=== PATIENT | male | born 1995 | race Caucasian/White ===

== ENCOUNTER 2023-03-11 20:25 | Emergency (ER) | payer BC ==
--- NOTE | 2023-03-11 20:33 | ERPHSYRPT ---
- History of Present Illness Time Seen by Provider: 03/11/23 20:33 Source: patient, family Exam Limitations: no limitations Physician History: This is a 28-year-old white male patient who presents with increasing shortness of breath and left-sided chest pain over the last week. Patient took a home COVID test 3 days ago and it was negative per his report. In the last 2 days his symptoms have significantly worsened. Patient has no known exposure to individuals with similar symptoms or with diagnosis of COVID or other viral illnesses. Patient takes no medications chronically. He has no known drug allergies. Patient is a daily smoker of cigarettes and is smoked a pack of cigarettes a day for 6 years. Patient's left-sided chest pain is an 8 out of 10. He presents with some diaphoresis. His room air oxygen saturation levels at the time of my examination were 96 to 97%. Timing/Duration: week(s) (1) Activities at Onset: none Severity of Dyspnea-Max: mild (To moderate) Severity of Dyspnea-Current: moderate Possible Cause: no prior episodes Associated Symptoms: chest pain/discomfort (Left side), heart racing, sweating, No cough, No wheezing Allergies/Adverse Reactions: No Known Drug Allergies Allergy (Verified 03/11/23 20:28) Hx Tetanus, Diphtheria Vaccination/Date Given: No Hx Influenza Vaccination/Date Given: No Hx Pneumococcal Vaccination/Date Given: No Travel Risk - International Travel Have you traveled outside of the country in past 3 weeks: No - Coronavirus Screening Are you exhibiting any of the following symptoms?: No Close contact with a COVID-19 positive Pt in past 14-21 Days: No - Review of Systems Constitutional: No Symptoms Eyes: No Symptoms Ears, Nose, & Throat: No Symptoms Respiratory: Dyspnea Cardiac: Chest Pain (Left side) Abdominal/Gastrointestinal: No No Symptoms Genitourinary Symptoms: No Symptoms Musculoskeletal: No Symptoms Skin: No Symptoms Neurological: No Symptoms Psychological: No Symptoms Endocrine: No Symptoms Hematologic/Lymphatic: No Symptoms Immunological/Allergic: No Symptoms All Other Systems: Reviewed and Negative - Past Medical History Pertinent Past Medical History: No Neurological History: No Pertinent History ENT History: No Pertinent History Cardiac History: No Pertinent History Respiratory History: No Pertinent History Endocrine Medical History: No Pertinent History Musculoskeletal History: Other - Past Surgical History Past Surgical History: Yes Musculoskeletal: Orthopedic Surgery Other Surgical History: skin cancer removed. tonsils - Social History Smoking Status: Current every day smoker How long have you smoked: 6 YRS. Exposure to second hand smoke: Yes Drug Use: none Patient Lives Alone: No - Nursing Vital Signs Nursing Vital Signs: Initial Vital Signs Temperature 98.5 F 03/11/23 20:26 Pulse Rate 116 H 03/11/23 20:26 Respiratory Rate 30 H 03/11/23 20:26 Blood Pressure 150/102 03/11/23 20:26 O2 Sat by Pulse Oximetry 99 03/11/23 20:26 Pain Scale Pain Intensity 8 - Physical Exam General Appearance: mild distress, alert, anxiety Eye Exam: PERRL/EOMI Ears, Nose, Throat Exam: hearing grossly normal, normal ENT inspection, normal pharynx Neck Exam: normal inspection, non-tender, supple, full range of motion Respiratory Exam: normal breath sounds, chest tenderness (Left side. Worsens with inspiration), lungs clear, airway intact, No respiratory distress Cardiovascular/Chest Exam: tachycardia Abdominal/Gastrointestinal Exam: soft, normal bowel sounds, No tenderness Rectal Exam: not done Extremity Exam: non-tender, normal range of motion, normal inspection Neurologic Exam: alert, oriented x 3, cooperative, equipment operat0r II-XII nml as tested, normal mood/affect, nml cerebellar function, nml station & gait, sensation nml Skin Exam: normal color, warm, dry Lymphatic Exam: No adenopathy SpO2 Interpretation: normal O2 Delivery: Room Air - Course Nursing assessment & vital signs reviewed: Yes EKG Interpreted by Me: RATE ([id number]), Sinus Rhythm, NORMAL AXIS, NORMAL INTERVALS, NORMAL QRS, NORMAL ST-T, Other (No acute ischemic changes on today's twelve-lead EKG.) Ordered Tests: Active Orders 24 hr Category Date Time Status EKG-ER Only STAT Care 03/11/23 20:48 Active IV Insertion STAT Care 03/11/23 20:48 Active CHEST 1 VIEW (PORTABLE) Stat Exams 03/11/23 21:59 Taken CBC W DIFF Stat Lab 03/11/23 20:56 Completed CMP Stat Lab 03/11/23 20:56 Completed D-DIMER QUANTITATIVE Stat Lab 03/11/23 20:56 Completed NT PRO BNPII Stat Lab 03/11/23 20:56 Completed PROTIME WITH INR Stat Lab 03/11/23 20:56 Completed TROPONIN Q4H Lab 03/11/23 20:56 Completed TROPONIN Q4H Lab 03/12/23 01:00 Ordered TROPONIN Q4H Lab 03/12/23 05:00 Ordered Medication Summary Generic Name Dose Route Start Last Admin Trade Name Alisa PRN Reason Stop Dose Admin Sodium Chloride 1,000 mls @ 100 mls/hr 03/11/23 21:00 03/11/23 21:07 Sodium Chloride 0.9% 1000 Ml IV 04/10/23 20:59 100 mls/hr .Q10H YI Administration Discontinued Medications Generic Name Dose Route Start Last Admin Trade Name Alisa PRN Reason Stop Dose Admin Morphine Sulfate 4 mg 03/11/23 20:49 03/11/23 21:06 Morphine Sulfate 4 Mg/Ml Injection IV 03/11/23 20:50 4 mg STAT ONE Administration Morphine Sulfate Confirm 03/11/23 21:04 Morphine Sulfate 4 Mg/Ml Injection Administered 03/11/23 21:05 Dose 4 mg .ROUTE .STK-MED ONE Ondansetron HCl 4 mg 03/11/23 20:49 03/11/23 21:06 Ondansetron Hcl 4 Mg/2 Ml Vial IV 03/11/23 20:50 4 mg STAT ONE Administration Ondansetron HCl Confirm 03/11/23 21:03 Ondansetron Hcl 4 Mg/2 Ml Vial Administered 03/11/23 21:04 Dose 4 mg .ROUTE .STK-MED ONE Lab/Rad Data: Laboratory Result Diagrams 03/11/23 20:56 03/11/23 20:56 Laboratory Results 03/11/23 03/11/23 03/11/23 Range/Units 21:07 20:56 20:56 WBC (4.0-10.5) x10^3/uL RBC (4.1-5.6) x10^6/uL Hgb (12.5-18.0) g/dL Hct (42-50) % MCV (78-100) fL MCH (26-32) pg MCHC (32-36) g/dL RDW (11.5-14.0) % Plt Count (150-450) x10^3/uL MPV (7.5-11.0) fL Gran % (36.0-66.0) % Immature Gran % (Auto) (0.00-0.4) % Nucleat RBC Rel Count (0.00-0.1) % Eos # (Auto) (0-0.5) x10^3/uL Immature Gran # (Auto) (0.00-0.03) x10^3u/L Absolute Lymphs (auto) (1.0-4.6) x10^3/uL Absolute Monos (auto) (0.0-1.3) x10^3/uL Absolute Nucleated RBC (0.00-0.01) x10^3u/L Lymphocytes % (24.0-44.0) % Monocytes % (0.0-12.0) % Eosinophils % (0.00-5.0) % Basophils % (0.0-0.4) % Absolute Granulocytes (1.4-6.9) x10^3/uL Basophils # (0-0.4) x10^3/uL PT 10.2 (9.4-12.5) SECONDS INR 0.93 (0.8-3.0) D-Dimer < 0.19 (0.0-0.50) mg/L Sodium (137-145) mmol/L Potassium (3.5-5.1) mmol/L Chloride (98-107) mmol/L Carbon Dioxide (22-30) mmol/L Anion Gap (5-15) MEQ/L BUN (9-20) mg/dL Creatinine (0.66-1.25) mg/dL Estimated GFR ML/MIN Glucose (74-106) mg/dL Calcium (8.4-10.2) mg/dL Total Bilirubin (0.2-1.3) mg/dL AST (17-59) U/L ALT (0-50) U/L Alkaline Phosphatase (38-126) U/L Troponin I < 0.012 (0.000-0.034) ng/mL NT-Pro-B Natriuret Pep < 20.0 (<300) pg/mL Serum Total Protein (6.3-8.2) g/dL Albumin (3.5-5.0) g/dL Influenza Type A Ag NEGATIVE (NEGATIVE) Influenza Type B Ag NEGATIVE (NEGATIVE) RSV (PCR) NEGATIVE (NEGATIVE) SARS-CoV-2 (PCR) NEGATIVE (NEGATIVE) 03/11/23 03/11/23 Range/Units 20:56 20:56 WBC 11.5 H (4.0-10.5) x10^3/uL RBC 5.83 H (4.1-5.6) x10^6/uL Hgb 17.5 (12.5-18.0) g/dL Hct 51.3 H (42-50) % MCV 88.0 (78-100) fL MCH 30.0 (26-32) pg MCHC 34.1 (32-36) g/dL RDW 12.0 (11.5-14.0) % Plt Count 257 (150-450) x10^3/uL MPV 11.5 H (7.5-11.0) fL Gran % 55.7 (36.0-66.0) % Immature Gran % (Auto) 0.7 H (0.00-0.4) % Nucleat RBC Rel Count 0.0 (0.00-0.1) % Eos # (Auto) 0.36 (0-0.5) x10^3/uL Immature Gran # (Auto) 0.08 H (0.00-0.03) x10^3u/L Absolute Lymphs (auto) 3.49 (1.0-4.6) x10^3/uL Absolute Monos (auto) 1.07 (0.0-1.3) x10^3/uL Absolute Nucleated RBC 0.00 (0.00-0.01) x10^3u/L Lymphocytes % 30.2 (24.0-44.0) % Monocytes % 9.3 (0.0-12.0) % Eosinophils % 3.1 (0.00-5.0) % Basophils % 1.0 (0.0-0.4) % Absolute Granulocytes 6.43 (1.4-6.9) x10^3/uL Basophils # 0.11 (0-0.4) x10^3/uL PT (9.4-12.5) SECONDS INR (0.8-3.0) D-Dimer (0.0-0.50) mg/L Sodium 139 (137-145) mmol/L Potassium 4.3 (3.5-5.1) mmol/L Chloride 97 L (98-107) mmol/L Carbon Dioxide 30 (22-30) mmol/L Anion Gap 17.1 H (5-15) MEQ/L BUN 11 (9-20) mg/dL Creatinine 1.09 (0.66-1.25) mg/dL Estimated GFR 93.6 ML/MIN Glucose 84 (74-106) mg/dL Calcium 10.2 (8.4-10.2) mg/dL Total Bilirubin 1.60 H (0.2-1.3) mg/dL AST 20 (17-59) U/L ALT 23 (0-50) U/L Alkaline Phosphatase 65 (38-126) U/L Troponin I (0.000-0.034) ng/mL NT-Pro-B Natriuret Pep (<300) pg/mL Serum Total Protein 8.8 H (6.3-8.2) g/dL Albumin 5.3 H (3.5-5.0) g/dL Influenza Type A Ag (NEGATIVE) Influenza Type B Ag (NEGATIVE) RSV (PCR) (NEGATIVE) SARS-CoV-2 (PCR) (NEGATIVE) - Progress Progress: improved, re-examined Air Movement: fair Progress Note: 03/11/23 20:59 This patient's medical issue is 1 of moderate complexity. The level of complexity in the workup performed based on review the patient's past medical history, review the patient's medication list, review the patient's drug allergy list, history of present illness and physical findings on examination. The workup in this patient includes placement of intravenous line, infusion of normal saline solution bolus, infusion of 4 mg intravenous Zofran, infusion of 4 mg intravenous morphine, CBC, CMP, viral studies, troponin level, twelve-lead EKG, D-dimer level. We will wait on the D-dimer level. If this is elevated we will perform a CT scan of the chest with contrast. If it is negative, we will perform a CT scan of the chest without contrast. 03/11/23 22:14 I interpreted the patient's laboratory data results. Patient has a leukocytosis with a left shift. However, his D-dimer and troponin level are within normal limits. His initial twelve-lead EKG does show sinus tachycardia with a heart rate of 119 bpm. Chest x-ray was interpreted by me. I do not appreciate any acute card iopulmonary process. I do not appreciate an infiltrate on this x-ray. This patient may have pleurisy. His room air oxygen saturation levels have been fine but he does have pain with inspiration. We will provide the patient with a dose of intravenous Solu-Medrol, intravenous Rocephin. Will then send prescriptions remotely to his pharmacy for azithromycin, prednisone and hydrocodone elixir. He may have an early upper respiratory infection that we are not seeing on chest x-ray at this time. I do not have a strong suspicion that the patient has a pulmonary embolus. Blood Culture(s) Obtained: Yes Antibiotics given: Yes Counseled pt/family regarding: lab results, diagnosis, rad results Medical Desision Making - Diagnostic Testing Diagnostic test were ordered, analyzed, and reviewed by me: Yes Radiological Interpretation: Interpreted by me, Teleradiologist Report - Risk of complications The pt has a mod risk of morbidity or mortality based on: Need for prescription drug management - Departure Departure Disposition: Home Clinical Impression: Leukocytosis, Painful respiration, Upper respiratory infection Condition: Stable Critical Care Time: No Additional Instructions: Drink plenty of fluids. Avoid any exposure to smoke. Take your antibiotics and steroids as prescribed. Call your primary care physician tomorrow, 03/12/2023 to make arranges for further evaluation and management. Prescriptions: Prednisone 10 mg [Deltasone 10 mg] 10 mg PO TID #12 tablet Hydrocodone/Acetaminophen [Hydrocodone-Acetamn 7.5-325/15] 10 ml PO Q8H PRN #120 ml MDD 30 ml PRN Reason: Cough Azithromycin 250 mg [Zithromax 250 MG TABLET] 250 mg PO ZPACK #6 tablet
[2023-03-11 20:43] VITALS: TEMP 98.5
[2023-03-11] MEDS ORDERED: MORPHINE SULFATE 4 MG INJ IV ONE (20:49)
[2023-03-11] MEDS ORDERED: Zofran 4 MG/2 ML VIAL IV ONE (20:49)
[2023-03-11 20:58] LABS: Absolute Neutrophil Ct (ANC) 6.43 x10^3/uL (1.4-6.9); Basophil (Absolute #) 0.11 x10^3/uL (0-0.4); Eosinophil % 3.1 % (0.00-5.0); Eosinophil (Absolute #) 0.36 x10^3/uL (0-0.5); Hematocrit 51.3 % (42-50); Hemoglobin 17.5 g/dL (12.5-18.0); IMMATURE GRAN # 0.08 x10^3u/L (0.00-0.03); IMMATURE GRAN % 0.7 % (0.00-0.4); Lymphocyte (Absolute #) 3.49 x10^3/uL (1.0-4.6); Lymphocytes % 30.2 % (24.0-44.0); Mean Corpuscular Hgb Concent. 34.1 g/dL (32-36); Mean Platelet Volume 11.5 fL (7.5-11.0); Monocyte (Absolute #) 1.07 x10^3/uL (0.0-1.3); Monocytes % 9.3 % (0.0-12.0); Neutrophil % 55.7 % (36.0-66.0); Platelet Count 257 x10^3/uL (150-450); Red Blood Count 5.83 x10^6/uL (4.1-5.6); White Blood Count 11.5 x10^3/uL (4.0-10.5)
[2023-03-11] MEDS ORDERED: Sodium Chloride 0.9% 1000 ML 1,000 ML IV SCH (21:00)
[2023-03-11] MEDS ORDERED: Zofran 4 MG/2 ML VIAL ONE (21:03)
[2023-03-11] MEDS ORDERED: MORPHINE SULFATE 4 MG INJ ONE (21:04)
[2023-03-11] MEDS ORDERED: Sodium Chloride 0.9% 1000 ML 1,000 ML ONE (21:04)
[2023-03-11 21:06] LABS: ALBUMIN 5.3 g/dL (3.5-5.0); ANION GAP 17.1 MEQ/L (5-15); BILIRUBIN,TOTAL 1.6 mg/dL (0.2-1.3); Calcium 10.2 mg/dL (8.4-10.2); Creatinine 1 1.09 mg/dL (0.66-1.25); D-DIMER QUANTITATIVE < 0.19 mg/L (0.0-0.50); EST GLOMERULAR FILTRATION RATE 93.6 ML/MIN; INR 0.93 (0.8-3.0); PROTIME 10.2 SECONDS (9.4-12.5); Potassium 4.3 mmol/L (3.5-5.1); Total Protein 8.8 g/dL (6.3-8.2)
[2023-03-11 21:19] LABS: NT PRO BNPII < 20.0 pg/mL (<300); TROPONIN < 0.012 ng/mL (0.000-0.034)
[2023-03-11 21:46] LABS: INFLUENZA A NEGATIVE (NEGATIVE); INFLUENZA B NEGATIVE (NEGATIVE); RESPIRATORY SYNCTIAL VIRUS NEGATIVE (NEGATIVE); SARS-CoV-2 Xpert Express NEGATIVE (NEGATIVE)
[2023-03-11] MEDS ORDERED: ROCEPHIN 1 Gm-D5w 50 ml Bag** 1 G/50 ML IVPB IV STA (22:21)
[2023-03-11] MEDS ORDERED: solu-MEDROL 125 MG, Sterile H2O 10 ml 2 ML IV ONE ×2 (22:21)
[2023-03-11] MEDS ORDERED: HYDROCODONE-ACETAMIN 2.5-108/5 ML SOLUTION PO STA (22:22)
[2023-03-11] MEDS ORDERED: Sterile H2O 10 ml IJ ONE (22:23)
[2023-03-11] MEDS ORDERED: ROCEPHIN 1 Gm-D5w 50 ml Bag** 1 G/50 ML IVPB IV ONE (22:23)
[2023-03-11] MEDS ORDERED: solu-MEDROL ONE (22:23)
[2023-03-11] MEDS ORDERED: HYDROCODONE-ACETAMIN 2.5-108/5 ML SOLUTION ONE (22:30)
[2023-03-11 22:42] VITALS: RESP 22
[2023-03-11 23:05] VITALS: BP 133/87; PULSE 93; O2SAT 98
--- NOTE | 2023-03-12 08:18 | XRAY ---
Indication: Left chest pain. Comparison: February 25, 2012 Portable chest remains inflated and clear. Heart and mediastinal structures within normal limits. Bony thorax intact. Impression: Continued nonacute chest.
== END 2023-03-11 23:46 | disposition home or self-care (01) ==
LOC: ED 20:25
DX: J06.9 Acute upper respiratory infection, unspecified (principal); D72.829 Elevated white blood cell count, unspecified; R06.00 Dyspnea, unspecified; R07.9 Chest pain, unspecified; Z79.52 Long term (current) use of systemic steroids; Z79.891 Long term (current) use of opiate analgesic; Z72.0 Tobacco use
CPT/HCPCS: 0241U; 36000; 36415; 71045; 80053; 83880; 84484; 85025; 85379; 85610; 93005; 96365; 96374; 96375; 99284; J0696; J2270; J2405; J2930; A9270-GY

== ENCOUNTER 2023-03-11 23:58 | Emergency (ER) | payer BC ==
--- NOTE | 2023-03-12 00:11 | ERPHSYRPT ---
- History of Present Illness Time Seen by Provider: 03/12/23 00:06 Source: patient Exam Limitations: no limitations Physician History: This is a 28-year-old white male who had not even left the hospital premises after a full workup left-sided chest pain and shortness of breath was negative. He reports back to the emergency department. He could not get a ride home as he thought he could. He stated the left chest pain came back worse than when he first came in just a few hours ago. His workup was negative for any emergent or acute findings. His chest x-ray was negative, his D-dimer and troponin levels were normal. His viral studies were negative as well. His white count was a little elevated and there was a left shift present so we treated him for pneumonia. He was given a dose of Lortab elixir that we sent home with him that he was to take in the morning if needed. Patient is not on any medications chronically and he has no known drug allergies. Patient was told that I cannot give him any sedating drugs because he does not have a ride home in the event he is discharged. Timing/Duration: today Severity: moderate Associated Symptoms: other (Left-sided chest pain) Allergies/Adverse Reactions: Iodinated Contrast Media Allergy (Verified 03/12/23 00:59) Anaphylactic Reaction Hx Tetanus, Diphtheria Vaccination/Date Given: No Hx Influenza Vaccination/Date Given: No Hx Pneumococcal Vaccination/Date Given: No Travel Risk - International Travel Have you traveled outside of the country in past 3 weeks: No - Coronavirus Screening Are you exhibiting any of the following symptoms?: No Close contact with a COVID-19 positive Pt in past 14-21 Days: No - Vaccine Status Have you recieved a Covid-19 vaccination: Yes Reconciler: Unknown - Vaccination Dates Dates if Unknown: 2021 - Review of Systems Constitutional: No Symptoms Eyes: No Symptoms Ears, Nose, & Throat: No Symptoms Respiratory: No Symptoms Cardiac: Chest Pain (Left-sided sharp and stabbing) Abdominal/Gastrointestinal: No Symptoms Genitourinary Symptoms: No Symptoms Musculoskeletal: No Symptoms Skin: No Symptoms Neurological: No Symptoms Psychological: No Symptoms Endocrine: No Symptoms Hematologic/Lymphatic: No Symptoms Immunological/Allergic: No Symptoms All Other Systems: Reviewed and Negative - Past Medical History Pertinent Past Medical History: No Neurological History: No Pertinent History ENT History: No Pertinent History Cardiac History: No Pertinent History Respiratory History: No Pertinent History Endocrine Medical History: No Pertinent History Musculoskeletal History: Other GI Medical History: No Pertinent History Psycho-Social History: Depression - Past Surgical History Past Surgical History: Yes Musculoskeletal: Orthopedic Surgery Other Surgical History: skin cancer removed. tonsils - Social History Smoking Status: Current every day smoker How long have you smoked: 6 YRS. Exposure to second hand smoke: Yes Drug Use: none Patient Lives Alone: No - Nursing Vital Signs Nursing Vital Signs: Initial Vital Signs Blood Pressure 169/104 03/12/23 00:05 Pain Scale Pain Intensity [Left Lateral 10 Chest] Pain Intensity 4 - Physical Exam General Appearance: mild distress, alert, anxiety Eye Exam: PERRL/EOMI, eyes nml inspection Ears, Nose, Throat Exam: normal ENT inspection, moist mucous membranes Neck Exam: normal inspection, non-tender, supple, full range of motion Respiratory Exam: normal breath sounds, chest tenderness, lungs clear (Left anterior chest wall pain), airway intact, No respiratory distress Cardiovascular Exam: tachycardia Gastrointestinal/Abdomen Exam: soft, normal bowel sounds, No tenderness Rectal Exam: not done Back Exam: normal inspection, normal range of motion, No CVA tenderness, No vertebral tenderness Extremity Exam: normal inspection, normal range of motion, pelvis stable Neurologic Exam: alert, oriented x 3, cooperative, arabic professor II-XII nml as tested, normal mood/affect, nml cerebellar function, nml station & gait, sensation nml Skin Exam: normal color, warm, dry Lymphatic Exam: No adenopathy SpO2 Interpretation: normal O2 Delivery: Room Air - Course Nursing assessment & vital signs reviewed: Yes EKG Interpreted by Me: RATE (101), Sinus Tach, prolonged QT interval (Borderline), NORMAL QRS, NORMAL ST-T, Other (No acute ischemic changes on this twelve-lead EKG.) Ordered Tests: Active Orders 24 hr Category Date Time Status EKG-ER Only STAT Care 03/12/23 00:11 Active IV Insertion STAT Care 03/12/23 00:11 Active CHEST WITH CONTRAST [CT] Stat Exams 03/12/23 00:22 Completed TROPONIN Q4H Lab 03/12/23 00:49 Received TROPONIN Q4H Lab 03/12/23 04:15 Ordered TROPONIN Q4H Lab 03/12/23 08:15 Ordered Medication Summary Generic Name Dose Route Start Last Admin Trade Name Freq PRN Reason Stop Dose Admin Sodium Chloride 1,000 mls @ 999 mls/hr 03/12/23 00:42 03/12/23 00:50 Sodium Chloride 0.9% 1000 Ml IV 03/12/23 01:42 999 mls/hr .Q1H1M STA Administration Discontinued Medications Generic Name Dose Route Start Last Admin Trade Name Alisa PRN Reason Stop Dose Admin Diphenhydramine HCl 50 mg 03/12/23 00:33 03/12/23 00:34 Diphenhydramine Hcl 50 Mg/Ml Vial IV 03/12/23 00:34 50 mg STAT ONE Administration Diphenhydramine HCl Confirm 03/12/23 00:33 Diphenhydramine Hcl 50 Mg/Ml Vial Administered 03/12/23 00:34 Dose 50 mg .ROUTE .STK-MED ONE Famotidine 40 mg 03/12/23 00:33 03/12/23 00:35 Famotidine 20 Mg/1 Vial IV 03/12/23 00:34 40 mg STAT ONE Administration Famotidine Confirm 03/12/23 00:33 Famotidine 20 Mg/1 Vial Administered 03/12/23 00:34 Dose 20 mg IV .STK-MED ONE Famotidine Confirm 03/12/23 00:35 Famotidine 20 Mg/1 Vial Administered 03/12/23 00:36 Dose 20 mg IV .STK-MED ONE Sodium Chloride Confirm 03/12/23 00:47 Sodium Chloride 0.9% 1000 Ml Administered 03/12/23 00:48 Dose 1,000 mls @ ud .ROUTE .STK-MED ONE Morphine Sulfate 4 mg 03/12/23 00:43 03/12/23 00:50 Morphine Sulfate 4 Mg/Ml Injection IV 03/12/23 00:44 4 mg STAT ONE Administration Morphine Sulfate Confirm 03/12/23 00:47 Morphine Sulfate 4 Mg/Ml Injection Administered 03/12/23 00:48 Dose 4 mg .ROUTE .STK-MED ONE Ondansetron HCl 4 mg 03/12/23 00:28 03/12/23 00:31 Ondansetron Hcl 4 Mg/2 Ml Vial IV 03/12/23 00:29 4 mg STAT ONE Administration Ondansetron HCl Confirm 03/12/23 00:29 Ondansetron Hcl 4 Mg/2 Ml Vial Administered 03/12/23 00:30 Dose 4 mg .ROUTE .STK-MED ONE - Progress Progress: pain not gone completely, re-examined Progress Note: 03/12/23 00:10 This patient's workup is of low to moderate complexity. The level complex in the workup performed is based on review the patient's past medical history, review the patient's medication list, review the patient's drug allergy list, history present illness and physical findings on examination. This patient's workup will include placement of intravenous line, CT scan of the abdomen pelvis with contrast, troponin level and twelve-lead EKG. I do not think it is necessary to perform additional blood work. 03/12/23 00:35 Patient reported on both visits today these had no known drug allergies. He has never been exposed to or have a history of allergies to contrast dye. Therefore we proceeded with CT of the chest because of the severity of his left anterior chest pain. Down in the radiology department he had some vomiting followed by swelling of his lips and therefore we added Benadryl and Pepcid intravenously. Patient had received steroid dose approximately 2 to 3 hours prior to the CT scan of the chest with contrast. This should have help prevent any type of allergic reaction. 03/12/23 00:40 I examined the patient upon arrival back to his emergency department room after his CT scan of the chest with contrast. It appears she did have an allergic reaction. He had nausea and he had redness of the face and neck and chest area and hands. He has no stridor no wheezing. His room air oxygenation saturation levels 98%. He is on the monitor and we will provide him with normal saline solution and repeat a steroid dose here shortly. We are awaiting for his mother to arrive. He has assured me that his mother is on the way to the emergency department. He is having left anterior chest pain. 03/12/23 01:18 This patient's allergic reaction is now resolved. I will give him 80 mg of intravenous Solu-Medrol at this time. He has significant improvement in his chest pain on the left side as well as short this of breath resolution. We are awaiting his CT scan of the chest with contrast results. 03/12/23 01:22 03/12/23 01:31 CT scan of the chest with contrast shows no definite acute pulmonary thromboembolism. There is mild left-sided pleural effusion with atelectatic changes. The intrathoracic aorta is within normal limits. The heart size is normal and there is no pericardial effusion. Counseled pt/family regarding: lab results, diagnosis, need for follow-up, rad results Medical Desision Making - Diagnostic Testing Diagnostic test were ordered, analyzed, and reviewed by me: Yes Radiological Interpretation: Reviewed by me, Teleradiologist Report - Risk of complications Low Risk: Low risk of morbidity from additional dx testing or treatment - Departure Departure Disposition: Home Clinical Impression: Left-sided chest pain, Pleural effusion, left Condition: Stable Critical Care Time: No Referrals: DOCTOR,NO FAMILY [Primary Care Provider] - Follow up/PCP as directed Additional Instructions: Take all your medications as prescribed add Benadryl 25 mg orally 3 times a day for the next 4 days. Add Pepcid, [id number], 1 tablet daily in the morning for 4 days. Call your primary care provider later today to make a follow-up appointment for further evaluation management.
[2023-03-12 00:19] VITALS: TEMP 97.7
[2023-03-12] MEDS ORDERED: Zofran 4 MG/2 ML VIAL IV ONE (00:28)
[2023-03-12] MEDS ORDERED: Zofran 4 MG/2 ML VIAL ONE (00:29)
[2023-03-12] MEDS ORDERED: Pepcid 20 MG VIAL IV ONE ×3 (00:33→00:35)
[2023-03-12] MEDS ORDERED: BENADRYL 50 MG/ML IV ONE (00:33)
[2023-03-12] MEDS ORDERED: BENADRYL 50 MG/ML ONE (00:33)
[2023-03-12] MEDS ORDERED: Sodium Chloride 0.9% 1000 ML 1,000 ML IV STA (00:42)
[2023-03-12] MEDS ORDERED: MORPHINE SULFATE 4 MG INJ IV ONE (00:43)
[2023-03-12] MEDS ORDERED: Sodium Chloride 0.9% 1000 ML 1,000 ML ONE (00:47)
[2023-03-12] MEDS ORDERED: MORPHINE SULFATE 4 MG INJ ONE (00:47)
--- NOTE | 2023-03-12 01:26 | XRAY ---
CLINICAL HISTORY:left cp, chest pain. COMPARISON:None. TECHNIQUES:CT pulmonary angiogram was performed using contrast with sagittal and coronal reformats. 80 cc Isovue 370 was given. FINDINGS: Motion artifacts degrading image quality causing suboptimal evaluation. The main pulmonary trunk, right and left pulmonary arteries with the ascending and descending branches are normal. The segmental branches are normal in caliber and show good contrast opacification with no evidence of definite filling defect/thrombosis. No evidence of any focal filling defect seen. The aortic arch and visualized ascending aorta and descending aorta are normal. Mild left-sided pleural effusion noted with adjacent atelectatic changes. No free or encysted pleural effusion on right side. Heart size is normal, and there is no pericardial effusion. No pathologically enlarged mediastinal, hilar or axillary lymph node was identified. There is no definite mass lesion in the chest wall. Scanned upper abdomen shows a small 2 mm calculus at the upper calyx of left kidney. IMPRESSION: Motion artifacts degrade image quality causing suboptimal evaluation. No definite evidence of acute pulmonary thromboembolism. Mild left sided pleural effusion noted with adjacent atelectatic changes. Scanned upper abdomen shows small non-obstructive 2 mm left renal calculus in upper calyx. Electronically Signed by: Keyla Dolan MD. (03/12/2023 00:22:53 STRIP DEBURRER)
[2023-03-12 02:05] VITALS: BP 133/89; RESP 16
[2023-03-12 02:18] VITALS: PULSE 91; O2SAT 97
== END 2023-03-12 02:17 | disposition home or self-care (01) ==
LOC: ED 23:58
DX: J90 Pleural effusion, not elsewhere classified (principal); R07.9 Chest pain, unspecified; Z72.0 Tobacco use
CPT/HCPCS: 36000; 36415; 71260; 84484; 93005; 96360; 96374; 96375; 99284; J1200; J2270; J2405

== ENCOUNTER 2024-05-08 16:00 | Emergency (ER) | payer OTHER ==
[2024-05-08 16:16] VITALS: TEMP 97.6
--- NOTE | 2024-05-08 16:26 | ERPHSYRPT ---
- History of Present Illness Time Seen by Provider: 05/08/24 16:25 Source: patient Exam Limitations: no limitations Patient Subjective Stated Complaint: C/O "left lung pain" for about a week Triage Nursing Assessment: Patient ambulated back to ER without difficulties. He is alert and oriented; anxious. NO cough or SOB noted during assessment. Skin tone normal. GE WNL. Timing/Duration: today Severity: mild Associated Symptoms: denies symptoms Allergies/Adverse Reactions: Iodinated Contrast Media Allergy (Verified 05/08/24 16:12) Anaphylactic Reaction Hx Tetanus, Diphtheria Vaccination/Date Given: Yes Hx Influenza Vaccination/Date Given: No Hx Pneumococcal Vaccination/Date Given: No Immunizations Up to Date: Yes Travel Risk - International Travel Have you traveled outside of the country in past 3 weeks: No - Emerging Infectious Disease Are you exhibiting symptoms associated with any current EIDs: Yes Symptoms: Cough: New Onset, Other (Please Comment) Comment: "left lung pain" - Review of Systems Constitutional: No Symptoms Eyes: No Symptoms Ears, Nose, & Throat: No Symptoms Respiratory: Cough Cardiac: No Symptoms Abdominal/Gastrointestinal: No Symptoms Genitourinary Symptoms: No Symptoms Musculoskeletal: No Symptoms - Past Medical History Pertinent Past Medical History: No Neurological History: No Pertinent History ENT History: No Pertinent History Cardiac History: No Pertinent History Respiratory History: No Pertinent History Endocrine Medical History: No Pertinent History Musculoskeletal History: Other GI Medical History: No Pertinent History Psycho-Social History: Depression - Past Surgical History Past Surgical History: Yes Musculoskeletal: Orthopedic Surgery Other Surgical History: skin cancer removed, elbow - Social History Smoking Status: Current every day smoker How long have you smoked: 17 years Exposure to second hand smoke: Yes Drug Use: marijuana Patient Lives Alone: No - Social Determinants of Health Will the patient participate in the screening: Declined to provide - Nursing Vital Signs Nursing Vital Signs: Initial Vital Signs Temperature 97.6 F 05/08/24 16:05 Pulse Rate 77 05/08/24 16:05 Respiratory Rate 16 05/08/24 16:05 Blood Pressure 170/89 05/08/24 16:05 O2 Sat by Pulse Oximetry 97 05/08/24 16:05 Pain Scale Pain Intensity 0 - Physical Exam General Appearance: no apparent distress Eye Exam: PERRL/EOMI Ears, Nose, Throat Exam: normal ENT inspection Neck Exam: normal inspection Respiratory Exam: other (coarse bs noted bilaterally ) Cardiovascular Exam: regular rate/rhythm Gastrointestinal/Abdomen Exam: soft, normal bowel sounds SpO2: 97 Ordered Tests: Active Orders 24 hr Category Date Time Status CHEST 1 VIEW (PORTABLE) Stat Exams 05/08/24 16:25 Completed - Progress Progress Note: . . .Patient was seen and evaluated for pleuritic symptoms with cough and congestion he has a history of pneumonia and was concerned about developing pneumonia we will exam reveals coarse breath sounds he will be treated for bronchitis with Z-Chiki and inhaler and was informed of the need to follow-up with his primary care provider chest x-ray reveals no acute finding 05/08/24 17:22 Medical Desision Making - Discussion of managment Agreed on:: need for follow-up - Departure Departure Disposition: Home Clinical Impression: Acute bronchitis Condition: Stable Critical Care Time: No Referrals: DAMARIS DON [Primary Care Provider] - Follow up/PCP as directed Prescriptions: Albuterol 8 gm Mdi Hfa [Ventolin Hfa MDI] 8 gm IH Q4H #1 Azithromycin 250 mg [Zithromax 250 MG TABLET] 250 mg PO ZPACK #6 tablet
--- NOTE | 2024-05-08 16:44 | XRAY ---
Indication: Cough. Comparison: March 11, 2023 Portable chest again demonstrates normal heart and lungs. Bony thorax intact. No new/acute findings.
[2024-05-08 17:25] VITALS: O2SAT 97
[2024-05-08 17:33] VITALS: BP 148/92; PULSE 68; RESP 21
== END 2024-05-08 18:09 | disposition home or self-care (01) ==
LOC: ED 16:00
DX: J20.9 Acute bronchitis, unspecified (principal); R07.81 Pleurodynia; Z79.899 Other long term (current) drug therapy; Z72.0 Tobacco use
CPT/HCPCS: 71045; 99282; 99284